=== PATIENT | female | born 1970 | race Caucasian/White ===

== ENCOUNTER → 2017-06-16 17:19 | Outpatient (CLI) | payer BC | END | disposition home or self-care (01) | LOC: D.MAMMO 15:45 | DX: Z12.31 Encounter for screening mammogram for malignant neoplasm of breast (principal) ==

== ENCOUNTER → 2017-07-14 09:33 | Outpatient (CLI) | payer BC | END | disposition home or self-care (01) | LOC: D.MAMMO 09:33 | DX: Z12.31 Encounter for screening mammogram for malignant neoplasm of breast (principal) ==

== ENCOUNTER → 2018-04-19 08:07 | Outpatient (CLI) | payer BC | END | disposition home or self-care (01) | LOC: D.CT 08:07 | DX: R10.9 Unspecified abdominal pain (principal) ==

== ENCOUNTER → 2019-10-18 07:36 | Outpatient (CLI) | payer MEDICAID | END | disposition home or self-care (01) | LOC: D.HCCECHO 07:36 | PROVIDERS: ATTEND Internal Medicine Cardiovascular Disease | DX: I20.9 Angina pectoris, unspecified (principal) ==

== ENCOUNTER 2019-11-08 11:59 | Outpatient (CLI) | payer MEDICAID ==
[~2019-11-08] VITALS: Ht 162.6 cm; Wt 72.7 kg
--- NOTE | ~2019-11-08 | HEMODYNAMI ---
PATIENT:EMEKA MANCERA MEDICAL RECORD: [id number] : 72 LOCATION:[facility] ADMISSION DATE: 11/08/19 Generatedon:11/08/201914:33 Patient name: EMEAK MANCERA Patient #: [id number] SSN: [id number] : 1970 Date of study: 11/08/2019 Page: Of Hemodynamic Procedure Report Patient Data Patient Demographics Procedure consent was obtained First Name: EMEKA Gender: Female Last Name: FIORDALIZA : 1970 Middle Initial: TRIXIE Age: 48 year(s) Patient #: [id number] Race: SSN: [id number] Additional ID: [id number] Contact details Address: [place] [address] State: [place] City: [place] Zip code: [address] Admission Admission Data Admission Date: 11/08/2019 Admission Time: 11:59 Arrival Date: 11/08/2019 Arrival Time: 0:00 Insurance Payor: Medicaid [facility] #: [id number] Height (in.): 64.17 BSA: 1.79 (m2) Height (cm.): 163 BMI: 27.48 (kg/m2) Weight (lbs.): 160.94 Weight (kg.): 73 Lab Results Lab Result Date: 11/08/2019 Lab Result Time: 0:00 Biochemistry Name Units Result Min Max BUN mg/dl 8 --(*---)-- 7 18 Creatinine mg/dl 0.9 --(-*--)-- 0.6 1.3 eGFR ml/min 70.54114 *-(----)-- 90 120 NONAFRICAN Procedure Procedure Types Cath Procedure Diagnostic Procedure [facility] w/Coronaries Sedation Charges Moderate Sedation up to 15 minutes Procedure Description Procedure Date Procedure Date: 11/08/2019 Procedure Start Time: 14:15 Procedure End Time: 14:32 Procedure Staff Name Function David Levy MD Performing Physician Jonathan Mera RT Monitor Selena Barahona RN Nurse Sydnee Bone RT Scrub Procedure Data Cath Procedure Fluoroscopy Diagnostic fluoroscopy Total fluoroscopy Time: 2.1 time: 2.1 min min Diagnostic fluoroscopy Total fluoroscopy dose: 266 dose: 266 mGy mGy Contrast Material Contrast Material Type Amount (ml) Isovue 300 62 Entry Location Entry Primary Successful Side Size Upsize Upsize Entry Closure Succes sful Closure Location (Fr) 1 (Fr) 2 (Fr) Remarks Device Remarks Femoral Right 5 Fr Exoseal artery Estimated blood loss: 10 ml Diagnostic catheters Device Type Used For End Catheter Placement MULTIPACK JL 4.0 5Fr Procedure catheter MULTIPACK 3DRC 5Fr Procedure catheter MULTIPACK Pigtail 5 Fr Procedure catheter Procedure Complications No complications Procedure Medications Medication Administration Route Dosage Oxygen etCO2 Nasal cannula 2 l/min Lidocaine 2% added to field 20 Heparin Flush Bag added to field 2 bags (1000units/500ml NS) 0.9% NaCl I.V. 100 ml/hr Radial Cocktail added to field 1 syringe (Verapamil 2mg/Nitro 400mcg/Heparin 1500units) Versed I.V. 2 mg Fentanyl I.V. 100 mcg Versed I.V. 1 mg Versed I.V. 1 mg Hemodynamics Rest BSA: 1.79 (m2) O2 Consumption: Estimated: 171.42 (ml/min) O2 Consumption indexed : Estimated:95.77 (ml/min/m) Heart Rate: 62 (bpm) Pressure Samples Time Site Value (mmHg) Purpose Heart Use Rate(bpm) 14:25 LV 113/7,20 Snapshot 66 14:26 AO 115/61(85) Pullback 66 14:26 LV 113/-2,39 Pullback 66 Gradients Valve Time Site 1 Site 2 Mean SEP/DFP Peak To Heart Use (mmHg) (sec/min) Peak Rate (mmHg) (bpm) Aortic 14:26 LV AO 0 10 0 66 113/-2,39 115/61(85) Calculations Valve P-P Mean Valve Index Valve Source Name Gradient Area Flow (cm2) Aortic 0 0 0 0 Snapshots Pre Cath Intra NCS Post Cath Vital Signs Time Heart Resp SPO2 etCO2 NIBP Rhythm Pain Sedation Rate (ipm) (%) (mmHg) (mmHg) Status Level (bpm) 14:08:24 64 15 99 19.6 130/78(91) NSR 0 (11) 10(A) , No pain 14:12:32 66 19 96 37 112/65(87) NSR 0 (11) 10(A) , No pain 14:16:31 63 14 94 30.9 115/70(84) NSR 0 (11) 9(A) , No pain 14:20:35 66 17 95 37.7 104/63(81) NSR 0 (11) 9(A) , No pain 14:24:35 65 15 95 22.6 116/60(93) NSR 0 (11) 9(A) , No pain 14:28:36 61 12 94 21.1 115/70(84) NSR 0 (11) 10(A) , No pain Medications Time Medication Route Dose Verified Delivered Reason Notes Effectiveness by by 14:08:13 Oxygen etCO2 2 l/min David Buffie used for Nasal Cam Barahona RN procedure cannula 14:08:20 Lidocaine 2% added 20ml David David for local to vial Cam Levy MD anesthetic field 14:08:26 Heparin Flush added 2 bags David David used for Bag to Cam Levy MD procedure (1000units/500ml field NS) 14:08:35 0.9% NaCl I.V. 100 David Buffie Per ml/hr Cam Barahona RN physician 14:08:59 Radial Cocktail added 1 David David for (Verapamil to syringe Cam Levy MD vasodilation 2mg/Nitro field 400mcg/Heparin 1500units) 14:12:37 Versed I.V. 2 mg David Buffie for sedation Cam Barahona RN 14:12:44 Fentanyl I.V. 100 mcg David Buffie for sedation Cam Barahona RN 14:17:43 Versed I.V. 1 mg David Buffie for sedation Cam Barahona RN 14:23:24 Versed I.V. 1 mg David Buffie for sedation Cam Barahona RN Procedure Log Time Note 13:31:48 Informed consent obtained and on chart 13:32:07 Diagnostic Cath Status : Elective 13:33:24 Procedure Status Elective Heart Cath (OP). 13:33:29 Time tracking: Regular hours (M-F 7:00 - 5:00) 13:39:05 Selena Barahona RN sent for patient. Start room use. 13:39:19 ACC Patient presents with Stable Angina CCS Anginal Class 2--Slight limitation of ordinary activity. 13:39:36 Plan of Care:Hemodynamics will remain stable., Cardiac rhythm will remain stable., Comfort level will be maintained., Respiratory function will remain adequate., Patient/ family verbilizes understanding of procedure., Procedure tolerated without complication., Recovers from procedure without complications.. 13:39:48 Risk of Mortality: 0.1 13:39:54 Risk of blood transfusion: 0.5 13:39:58 Risk of JORGE: 0.8 13:40:40 Stress Test: yes; abnormal ischemia anterior and apical 13:41:17 Lab Result : eGFR NONAFRICAN 70.55829 ml/min 13:41:17 Lab Result : Creatinine 0.9 mg/dl 13:41:17 Lab Result : BUN 8 mg/dl 13:41:23 Arrival Date: 11/08/2019 12:00:00 AM 13:41:42 Insurance Payor : Medicaid 13:41:48 Patient Height : 64.17 inches 13:41:54 Patient Weight : 160.94 lbs 13:48:29 Patient received from Pre/Post Procedure Room to CCL 1 Alert and oriented. Tansferred to table in Supine position. 13:48:30 Warm blankets applied, and aram hugger turned on for patient comfort. 13:48:31 Correct patient and procedure confirmed by team. 13:48:32 ECG and BP/O2 sat monitors applied to patient. 13:51:05 H&P Date Dictated: 11/03/2019 Within 30 days and on chart., H&P Addendum completed by physician on day of procedure. (MUST COMPLETE FOR ALL OUTPATIENTS). 13:51:06 Pre-procedure instructions explained to patient. 13:51:06 Pre-op teaching completed and patient verbalized understanding. 13:51:08 Family in patients room. 13:51:09 Patient NPO since Midnight. 13:51:12 Is the patient allergic to Iodine/contrast media? No. 13:51:14 Is patient on blood thinner?No 13:51:16 Patient diabetic? No. 13:59:46 Patient not . Patient has had tubal. 13:59:49 Previous problem with sedation/anesthesia? No ? 13:59:51 Snore? Yes 13:59:52 Sleep apnea? No 13:59:53 Deviated septum? No 13:59:54 Opens mouth fully? Yes 13:59:56 Sticks out tongue? Yes 14:00:00 Airway obstruction? No ? 14:00:05 Dentures? No ? 14:00:09 Pre procedure: right dorsailis pedis pulse 1+ Palpable, but thready & weak; easily obliterated 14:00:10 Modified Juan's test Ulnar < 7 seconds 14:00:12 Patient pain scale 0/10 ?. 14:05:17 IV left wrist D/C'd due to infiltration. 14:05:31 IV started by Selena Barahona RN inleft forearm with a 22 gauge IV catheter with 0.9% NaCl at O. 14:05:36 Use device set Radial Dx or PCI 14:05:54 Bag Decanter (2002S) opened to sterile field. 14:05:54 ACIST Hand Control (71707) opened to sterile field. 14:05:55 ACIST Syringe (11291) opened to sterile field. 14:05:58 Medline Cath Pack ([id number]) opened to sterile field. 14:05:59 ACIST Manifold (83830) opened to sterile field. 14:06:00 Tegaderm 4 x 4 (1626W) opened to sterile field. 14:06:03 MBrace Wrist Support ([id number]) opened to sterile field. 14:06:03 NEEDLE Cook 21G 4cm Radial ([id number]) opened to sterile field. 14:06:27 EMERALD Guide Wire (165-305) opened to sterile field. 14:06:30 IV CATHETER 22g opened to sterile field. 14:07:18 Vital chart was started 14:07:21 Baseline sample Acquired. 14:07:24 Rhythm: sinus rhythm 14:07:26 Full Disclosure recording started 14:07:40 Right Radial & Right Groin area was prepped with chlora-prep and draped in sterile fashion 14:07:41 Alarms reviewed by R. N. 14:07:41 Sharps counted by scrub and verified by R.N. 14:08:13 Oxygen 2 l/min etCO2 Nasal cannula was administered by Selena Barahona RN; used for procedure; Verbal order read back and verified. 14:08:20 Lidocaine 2% 20ml vial added to field was administered by David Levy MD; for local anesthetic; Verbal order read back and verified. 14:08:26 Heparin Flush Bag (1000units/500ml NS) 2 bags added to field was administered by David Levy MD; used for procedure; Verbal order read back and verified. 14:08:35 0.9% NaCl 100 ml/hr I.V. was administered by Selena Barahona RN; Per physician; Verbal order read back and verified. 14:08:59 Radial Cocktail (Verapamil 2mg/Nitro 400mcg/Heparin 1500units) 1 syringe added to field was administered by David Levy MD; for vasodilation; Verbal order read back and verified. 14:11:58 Physician arrived 14::58 --------ALL STOP TIME OUT------ 14::59 Final Timeout: patient, procedure, and site verified with staff and physician. All members of the team are in agreement. 14:12:09 Right Radial & Right Groin site verified by team. 14:12:14 Fire Safety Assessment: A--An alcohol-based skin anteseptic being used preoperatively., C--Open oxygen or nitrous oxide is being used., D--An ESU, laser, or fiber-optic light is being used. 14:12:27 Physical assessment completed. ASA score P 2 - A patient with mild systemic disease as per David Levy MD. 14:12:32 2) 60-89 Mildly reduced kidney function, and other findings (as for stage 1) point to kidney disease. 14:12:36 Maximum allowable contrast dose (3.7 X eGFR X 0.75)197 ml. 14:12:37 Versed 2 mg I.V. was administered by Selena Barahona RN; for sedation; Verbal order read back and verified. 14:12:44 Fentanyl 100 mcg I.V. was administered by Selena Barahona RN; for sedation; Verbal order read back and verified. 14:15:24 Procedure started. 14:15:28 Local anesthetic to right radial artery with Lidocaine 2% by David Levy MD.INITIAL ACCESS ONLY 14:16:43 Unable to gain radial access due to radial artery being too small. Moving to Femoral approach.. 14:16:52 Local anesthetic to right femoral artery with Lidocaine 2% by David Levy MD.ADDITIONAL ACCESS 14:17:24 SHEATH 5FR [place] ([id number]) opened to sterile field. 14:17:30 Use device set Multipack Set 14:17:35 DIAGNOSTIC Multipack 5Fr catheter set ([id number]) opened to sterile field. 14:17:43 Versed 1 mg I.V. was administered by Selena Barahona RN; for sedation; Verbal order read back and verified. 14:18:40 A 5 Fr sheath was inserted into the Right Femoral artery 14:19:03 A MULTIPACK JL 4.0 5Fr catheter was advanced over the wire and used for Procedure. 14:20:07 LCA angiography performed. 14:22:45 Catheter exchanged over wire. 14:23:04 A MULTIPACK 3DRC 5Fr catheter was advanced over the wire and used for Procedure. 14:23:24 Versed 1 mg I.V. was administered by Selena Barahona RN; for sedation; Verbal order read back and verified. 14:23:39 RCA angiography performed. 14:24:34 ACCDominant side:Right 14:24:36 Catheter exchanged over wire. 14:24:42 A MULTIPACK Pigtail 5 Fr catheter was advanced over the wire and used for Procedure. 14:25:57 LV angiography performed. 14:26:02 LV gram done using AGUILAR 14:26:07 EF : 55 % 14:26:14 LV hemodynamics recorded. 14:26:20 Injector settings: Ml/sec: 5, Volume: 15, 14:26:48 Catheter exchanged over wire. 14:27:02 EXOSEAL 5Fr (EX500) opened to sterile field. 14:27:16 Sheath removed intact; hemostasis achieved with Exoseal to the Right Femoral artery. 14:27:30 Procedure ended.(Physican Out) 14::34 Fluoroscopy time 02.10 minutes. 14::38 Fluoroscopy dose: 266 mGy 14:27:38 Flurop Dose total: 266 14:27:44 Dose Area Product 10488 mGy/cm. 14:27:54 Contrast amount:Isovue 300 62ml. 14:27:57 Maximum allowable dose exceeded? No. 14:27:59 Sharps counted by scrub and verified by R.N. 14:28:00 Insertion/operative site no bleeding no hematoma. 14:28:03 Post-op/insertion site Right Femoral artery dressed using a 4 x 4 and Tegaderm. 14:28:04 Post Procedure Pulses reassessed and unchanged 14:28:07 Post-procedure physical assessment completed. ASA score P 2 - A patient with mild systemic disease as per David Levy MD. 14:28:11 Post procedure rhythm: unchanged. 14:28:14 Estimated blood loss: 10 ml 14:28:21 Post procedure instruction explained to patient.Patient verbalizes understanding. 14:28:22 Patient needs reinforcement of post procedure teaching. 14:28:48 Procedure type changed to Cath procedure, Diagnostic procedure, LHC, C w/Coronaries, Sedation Charges, Moderate Sedation up to 15 minutes 14:28:49 Procedure and supply charges have been captured, reviewed, submitted and are correct. 14:28:54 Procedure Complication : No complications 14:29:00 [facility] Findings: mild to moderate CAD (<70%) 14:29:02 Operative report dictated upon procedure completion. 14:29:02 See physician's report for complete and final results. 14:30:35 Vital chart was stopped 14:32:21 Report given to ED. 14:32:25 Patient transfered to Pre/Post Procedure Room with Stretcher. 14:32:29 Procedure ended. 14:32:29 Full Disclosure recording stopped 14:32:46 End room use (Document Last) 14:33:03 End room use (Document Last) 14:33:23 End room use (Document Last) Device Usage Item Name Manufacture Quantity Catalog Hospital Part Current Minimal Lot# / Number Charge Number Stock Stock Serial# Code Bag Microtek 1 [id number] 63626 043595 5 Decanter Medical Inc. () ACIST Hand Acist 1 28767 874040 952985 693282 5 Control Medical (48042) Systems Inc ACIST Acist 1 87584 922499 334986 579851 20 Syringe Medical (46778) Systems Inc Medline Medline 1 [id number] 663334 51054 169343 5 Cath Pack ([id number]) ACIST Acist 1 56016 744702 473136 554900 5 Manifold Medical (54753) Systems Inc Tegaderm 4 3M 1 1626W 050711 497927 106646 5 x 4 (1626W) MBrace Advanced 1 140-0250-00 427460 65697 901909 5 Wrist Vascular Support Dynamics ([id number]) NEEDLE [facility] 1 [id number] 953604 195881 047012 5 21G 4cm Radial (M65989) [facility] Cardinal 1 777-879 609292 831364 179299 5 Guide Wire Health (502-052) IV CATHETER B. [place] 1 3644947-31 703003 639176 390151 5 22g SHEATH 5FR Terumo 1 OLJ531 533373 465616 591229 5 [place] (HUW592) DIAGNOSTIC Cardinal 1 DE8231 544905 40602 354290 30 Multipack Health 5Fr catheter set (CT2070) MULTIPACK Cardinal 1 501347 5 JL 4.0 5Fr Health catheter MULTIPACK Cardinal 1 313963 5 3DRC 5Fr Health catheter MULTIPACK Cardinal 1 410888 5 Pigtail 5 Health Fr catheter EXOSEAL 5Fr Cardinal 1 EX500 241848 564588 805861 10 (EX500) Health Signature Audit [place] Stage Time Signature Unsigned Intra-Procedure 11/08/2019 Jonathan Mera 2:33:03 PM RT(R) Intra-Procedure 11/08/2019 Selena Barahona RN 2:33:23 PM Intra-Procedure 11/08/2019 David Levy MD 2:33:50 PM [facility] [address] [place] [address]
[2019-11-08] MEDS ORDERED: TRAZODONE HCL150 MG PO (12:59)
[2019-11-08] MEDS ORDERED: TOFRANIL50 MG PO (13:00)
[2019-11-08] MEDS ORDERED: CYMBALTA30 MG PO (13:00)
[2019-11-08] MEDS ORDERED: GABAPENTIN300 MG PO (13:00)
[2019-11-08 13:09] VITALS: BP 133/76; Ht 162.6 cm; Wt 72.7 kg
[2019-11-08 13:24] LABS: ANION GAP 14.7 mmol/L (8-16); CALCIUM 8.9 mg/dL (8.5-10.1); CARBON DIOXIDE 24.4 mmol/L (21.0-32.0); CREATININE - SERUM 0.9 mg/dL (0.6-1.3); POTASSIUM - SERUM 4.1 mmol/L (3.5-5.1)
[2019-11-08 13:33] LABS: BASOPHILS 0 % (0-2); EOSINOPHILS 0.1 % (0-7); HEMATOCRIT 42.6 % (36.0-48.0); HEMOGLOBIN 14.6 g/dL (12-16); IMMATURE GRANULOCYTES 0.4 % (0-5); LYMPHOCYTES 24.5 % (15-50); MCH 31.6 pg (26.0-34.0); MCHC 34.3 g/dL (31.0-37.0); MCV 92.2 fL (80.0-100.0); MEAN PLATELET VOLUME 9.7 fL (7.4-10.4); MONOCYTES 5.5 % (2-11); NEUTROPHILS 69.5 % (40-80); PLATELET COUNT 234 10x3/uL (130-400); RBC 4.62 10x6/uL (4.00-5.40); RDW 12.8 % (11.5-14.5); WBC 9.1 10x3/uL (4.8-10.8)
--- NOTE | 2019-11-08 14:45 | NUR ---
PT RECEIVED VIA STRETCHER FROM [facility] FOR RECOVERY. PT AWAKE BUT DROWSY, PT DENIES PAIN OR DISCOMFORT. PT PLACED ON CARDIAC MONITORS AND O2 VIA NC AT 2L. IV PATENT INFUSING VIA L ARM PER ORDERS. R GROIN W 5FR EXOCELE, DRESSING CDI NO BLEEDING OR S/S HEMATOMA NOTED. LEG PINK AND WARM, PEDAL PULSES PALPABLE. PT INSTRUCTED TO KEEP HEAD ON PILLOW AND LEG STRAIGHT, SHE VERBALIZED UNDERSTANDING. CALL LIGHT IN REACH.
--- NOTE | 2019-11-08 15:15 | NUR ---
PT RESTING W EYES CLOSED. R GROIN SOFT, DRESSING REMAINS CDI NO BLEEDING OR S/S HEMATOMA NOTED. PEDAL PULSES PALPABLE. VSS. CALL LIGHT IN REACH, MOTHER AT BS.
--- NOTE | 2019-11-08 15:51 | NUR ---
PT PLACED ON BEDPAN, VOIDED 400 CC CLEAR YELLOW URINE. VSS. PT DENIES PAIN OR OTHER NEEDS AT THIS TIME. GROIN DRESSING REMAINS CDI NO S/S HEMATOMA NOTED. CALL LIGHT IN REACH, MOM AT BS.
--- NOTE | 2019-11-08 16:21 | NUR ---
GROIN SOFT, DRESSING CDI NO S/S HEMATOMA. DISCHARGE INSTRUCTIONS REVIEWED W PT AND MOM, BOTH VERBALIZED UNDERSTANDING. IV REMOVED W CATH INTACT, MONITORS REMOVED AND PT UP TO DRESS FOR DISCHARGE.
--- NOTE | 2019-11-08 16:28 | NUR ---
PT DISCHARGED VIA WC TO MOM WAITING IN PRIVATE VEHICLE. PT HAD ALL BELONGINGS AND DISCHARGE PAPERWORK.
== END 2019-11-08 16:30 | disposition home or self-care (01) ==
LOC: D.CATH 11:59
PROVIDERS: ATTEND Internal Medicine Cardiovascular Disease
DX: I20.9 Angina pectoris, unspecified (principal); R94.39 Abnormal result of other cardiovascular function study; R55 Syncope and collapse; Z72.0 Tobacco use